=== PATIENT | female | born 1985 | race Caucasian/White ===

== ENCOUNTER 2024-05-17 05:01 | Emergency (ER) | payer MEDICAID ==
[~2024-05-17] VITALS: Ht 152.4 cm; Wt 56.0 kg
[2024-05-17 05:09] VITALS: TEMP 97.8; O2SAT 96
[2024-05-17 06:06] LABS: BASOPHILS % 0.5 % (0.0-2.0); DIFFERENTIAL COMMENT 0; EOSINOPHILS % 0.8 % (0.0-5.0); HEMATOCRIT. 33.1 % (36.0-48.0); HEMOGLOBIN. 11.2 g/dL (12.0-16.0); LYMPHOCYTES % 30.8 % (20.0-50.0); MEAN CORPUSCULAR HEMOGLOBIN 26.5 pg (28.0-32.0); MEAN CORPUSCULAR HGB CONC 33.7 g/dL (31.0-37.0); MEAN CORPUSCULAR VOLUME 78.6 fL (81.0-99.0); MEAN PLATELET VOLUME 7.1 fl (7.4-10.4); MONOCYTES % 6.4 % (2.0-8.0); NEUTROPHILS % 61.5 % (40.0-76.0); PLATELET 463 x1000/uL (130-400); RED BLOOD CELL COUNT 4.21 mill/uL (4.2-5.4); RED CELL DISTRIBUTION WIDTH 15.6 % (11.6-14.6); WHITE BLOOD COUNT 8.9 x1000/uL (4.5-11.0)
[2024-05-17 06:10] LABS: CHLORIDE 107 mEq/L (98-107); POTASSIUM 3.3 mEq/L (3.5-5.1); SODIUM 140 mEq/L (136-145)
[2024-05-17 06:11] LABS: CARBON DIOXIDE 24 mEq/L (21-32)
[2024-05-17 06:12] LABS: CALCIUM 8.8 mg/dL (8.7-10.4)
[2024-05-17 06:16] LABS: CREATININE 0.7 mg/dL (0.6-1.0); GLUCOSE 139 mg/dL (70-105); UREA NITROGEN BLOOD 17 mg/dL (9-23)
[2024-05-17 06:18] LABS: ALANINE AMINOTRANSFERASE 24 IU/L (10-49); ALBUMIN 4.6 g/dL (3.2-4.8); ASPARTATE AMINOTRANSFERASE 39 IU/L (<34)
[2024-05-17 06:19] LABS: BILIRUBIN TOTAL 0.3 mg/dL (0.1-1.0); PROTEIN TOTAL 7.9 g/dL (6.0-8.3)
[2024-05-17 06:40] LABS: UCG SCREEN NEGATIVE
[2024-05-17 06:41] LABS: UCG KIT LOT# 873622
[2024-05-17 06:43] LABS: BILIRUBIN DIRECT < 0.1 mg/dL (<=3.0); TROPONIN I HIGH SENSITIVITY < 4 ng/L (3.0-34)
[2024-05-17] MEDS: LORAZEPAM 1MG TABLET PO ONE (06:50)
[2024-05-17] MEDS: ONDANSETRON HCL 4MG/2ML INJ IV ONE (06:50)
[2024-05-17] MEDS: MORPHINE SULFATE 4 MG/ML INJ (FOR IV/IM USE) IV ONE (06:50)
[2024-05-17] MEDS ORDERED: ACET-2708 MT (09:08)
[2024-05-17 09:44] VITALS: BP 113/79; PULSE 73; RESP 15; O2SAT 100
== END 2024-05-17 10:05 | disposition home or self-care (01) ==
LOC: ER 05:01
DX: R07.9 Chest pain, unspecified (principal); Z98.890 Other specified postprocedural states
CPT/HCPCS: 99285; 96374; 71045; 96375; 80053; 81025; 85025; 85379; 84484; 36415; 93005; 80076; J2405; J2270